=== PATIENT | male | born 1985 | race Caucasian/White ===

== ENCOUNTER 2017-02-28 14:44 | Observation (INO) | payer OTHER ==
[~2017-02-28] VITALS: Ht 198.1 cm; Wt 125.0 kg
[~2017-02-28 14:44] MED LIST: CALCIUM CARBONATE; CELEXA 20MG20 MG/TAB PO; FLEXERIL10 MG PO; LORTAB 5/500 501 TAB PO; NAPROSYN500 MG PO
[2017-02-28] MEDS ORDERED: IRON325 MG PO (14:47)
[2017-02-28 15:11] LABS: BASO # 0.1 (0.0-0.2); BASO % 1.1 % (0.0-2.0); EOS # 0.2 (0.0-0.7); EOS % 2.2 % (0-4.0); GRAN # 3.7 (1.4-6.5); GRAN % 41.9 % (42.2-75.2); LYMPH # 4.3 (1.2-3.4); LYMPH % 48.5 % (20.0-51.0); MEAN CELL VOLUME 87 fl (80.0-100.0); MEAN CORPUSCULAR HGB CONC 33 g/dl (33.0-37.0); MEAN PLATELET VOLUME 10.1 fl (7.4-10.4); MONO # 0.5 (0.1-0.6); MONO % 5.9 % (1.7-9.3); PLATELET COUNT 274 K/mm3 (130-400); REDCELL DISTRIBUTION WIDTH-CV 15.8 % (11.5-14.5)
[2017-02-28 15:12] LABS: HEMOGLOBIN 10.6 g/dl (13.5-18.0); MEAN CORPUSCULAR HEMOGLOBIN 29 pg (27.0-31.0)
[2017-02-28 15:18] LABS: ADJUSTED CALCIUM 8.4 mg/dL (8.4-10.2); ALANINE AMINOTRANSFERASE 37 U/L (21-72); ALBUMIN 4.1 gm/dL (3.5-5.0); ALKALINE PHOSPHATASE 58 U/L (50-136); ANION GAP 17 mmol/L (7-16); BILIRUBIN,TOTAL 0.5 mg/dL (0.0-1.0); BLOOD UREA NITROGEN 27 mg/dL (9-20); CALCIUM 8.5 mg/dL (8.4-10.2); CARBON DIOXIDE 20 mmol/L (22-30); CHLORIDE 99 mmol/L (98-107); CREATININE, serum 0.84 mg/dL (0.66-1.25); GLUCOSE 160 mg/dL (74-106); POTASSIUM 3.6 mmol/L (3.4-5.0); SODIUM 136 mmol/L (137-145); TOTAL PROTEIN 6.5 gm/dL (6.4-8.2)
[2017-02-28 17:12] VITALS: BP 124/84; PULSE 119
[2017-02-28 17:35] LABS: PH 6 (5-8); SQUAMOUS EPITHELIAL None Seen /hpf; URINE APPEARANCE Clear; URINE BACTERIA None Seen /hpf; URINE BILIRUBIN Negative (NEGATIVE); URINE BLOOD Negative (NEGATIVE); URINE COLOR Straw; URINE GLUCOSE Negative (NEGATIVE); URINE KETONE Negative (NEGATIVE); URINE RBC 0-2 /hpf; URINE UROBILINOGEN Negative (NEGATIVE); URINE WBC 0-2 /hpf
[2017-02-28 17:45] LABS: AMPHETAMINE URINE NEGATIVE; BARBITURATES URINE NEGATIVE; BENZODIAZEPINES URINE NEGATIVE; BUPRENORPHINE URINE NEGATIVE; METHADONE URINE NEGATIVE; OPIATES URINE NEGATIVE; OXYCODONE URINE NEGATIVE; PHENCYCLIDINE URINE NEGATIVE; PROPOXYPHENE URINE NEGATIVE; THC CANNABINOIDS URINE NEGATIVE
[2017-02-28 17:46] LABS: C-REACTIVE PROTEIN < 0.5 mg/dL (0.0-0.9)
[2017-02-28 21:36] VITALS: BP 124/70; PULSE 109; TEMP 99
[2017-02-28 23:45] VITALS: BP 135/78; PULSE 106; TEMP 99.1
[2017-03-01] VITALS (14 sets, daily range): BP systolic 98–151; BP diastolic 55–82; PULSE 74–106; TEMP 97.9–99.1
[2017-03-01 06:41] LABS: ADD PATHOLOGY DIFF REVIEW NO
[2017-03-01 06:48] LABS: HEMATOCRIT 26.8 % (42.0-52.0); HEMOGLOBIN 8.7 g/dl (13.5-18.0); MEAN CELL VOLUME 87 fl (80.0-100.0); MEAN CORPUSCULAR HEMOGLOBIN 28 pg (27.0-31.0); MEAN CORPUSCULAR HGB CONC 33 g/dl (33.0-37.0); MEAN PLATELET VOLUME 10.1 fl (7.4-10.4); PLATELET COUNT 208 K/mm3 (130-400); RED BLOOD COUNT 3.07 M/mm3 (4.20-5.60); REDCELL DISTRIBUTION WIDTH-CV 16.2 % (11.5-14.5); WHITE BLOOD COUNT 6.9 K/mm3 (4.8-10.8)
[2017-03-01 07:16] LABS: CALCIUM 7.8 mg/dL (8.4-10.2); CREATININE, serum 0.76 mg/dL (0.66-1.25); POTASSIUM 4.1 mmol/L (3.4-5.0)
[2017-03-01 09:38] LABS: BAND 5 % (0-10); EOSINOPHIL 2 % (0-4); HYPOCHROMIA 1+; NEUTROPHILS 37 % (42.0-75.2); PLATELET ESTIMATE NORMAL (NORMAL); TOTAL CELLS COUNTED 100
[2017-03-01 11:06] LABS: RETIC % 2.6 % (0.5-3.52)
[2017-03-01 11:24] LABS: LACTATE DEHYDROGENASE 387 U/L (313-618)
[2017-03-01 13:06] LABS: FERRITIN 32 ng/mL (18-464)
[2017-03-02 02:56] VITALS: BP 138/77; PULSE 99; TEMP 98.9
[2017-03-02 08:11] VITALS: BP 136/73; PULSE 77; TEMP 97.8
[2017-03-02 08:21] LABS: HEMATOCRIT 25.2 % (42.0-52.0); HEMOGLOBIN 8.1 g/dl (13.5-18.0)
[2017-03-02 11:35] VITALS: BP 143/79; PULSE 92
[2017-03-02] MEDS ORDERED: PROTONIX 40MG T40 MG PO (15:03)
== END 2017-03-02 16:30 | disposition home or self-care (01) ==
LOC: COL.ER 14:44 → MEDICAL 17:21
PROVIDERS: Emergency Medicine; Family Medicine; Internal Medicine; Nurse Practitioner Family
DX: K26.7 Chronic duodenal ulcer without hemorrhage or perforation (principal); K29.50 Unspecified chronic gastritis without bleeding; D50.9 Iron deficiency anemia, unspecified; R55 Syncope and collapse; R00.0 Tachycardia, unspecified; F41.9 Anxiety disorder, unspecified; F32.9 Major depressive disorder, single episode, unspecified; K21.9 Gastro-esophageal reflux disease without esophagitis
CPT/HCPCS: 99223-AI; 99232-AI; C9113; G0378; J2250; J2916; J3010; J7030; J7050

== ENCOUNTER 2022-04-22 22:03 | Emergency (ER) | payer OTHER ==
[~2022-04-22] VITALS: Ht 195.6 cm; Wt 122.7 kg
[~2022-04-22 22:03] MED LIST changes: +IRON325 MG PO; +PROTONIX 40MG T40 MG PO
[2022-04-22 22:15] VITALS: BP 142/78; TEMP 100.2
[2022-04-22] MEDS ORDERED: PAXLOVID CO-PA1 EACH PO (22:44)
[2022-04-22] MEDS ORDERED: PEPCID AC20 MG PO (22:46)
[2022-04-22 23:16] VITALS: PULSE 96
== END 2022-04-22 23:16 | disposition home or self-care (01) ==
LOC: COL.ER 22:03
DX: U07.1 COVID-19 (principal)
CPT/HCPCS: J1885